=== PATIENT | male | born 1940 | race Caucasian/White ===

== ENCOUNTER 2022-08-16 02:19 | Inpatient (IN) | payer MEDICARE ==
[2022-08-16 03:07] LABS: ESTIMATED GFR 38 mL/min (>60); TROPONIN I HIGH SENSITIVITY 25.2 pg/mL (<=60.3)
[2022-08-16 03:18] LABS: CORONAVIRUS COVID-19 NAA NEGATIVE (NEGATIVE)
[2022-08-16] MEDS: cefTRIAXone 2 GM in Sodium Chloride 0.9% 50 ML IV SCH (03:43)
[2022-08-16] MEDS ORDERED: Bisacodyl 5 MG Tab PO PRN (04:47)
[2022-08-16] MEDS ORDERED: Nitroglycerin 0.4 MG Tab.SL SL PRN (04:47)
[2022-08-16] MEDS ORDERED: Acetaminophen 325 MG Tab PO PRN (04:47)
[2022-08-16] MEDS ORDERED: Melatonin 3 MG Tab PO PRN (04:47)
[2022-08-16] MEDS ORDERED: Morphine 2 MG/ML SYRINGE IVPUSH PRN (04:47)
[2022-08-16] MEDS ORDERED: oxyCODONE 5 MG Tab PO PRN (04:47)
[2022-08-16] MEDS ORDERED: Docusate Sodium 100 MG Cap PO PRN (04:47)
[2022-08-16] MEDS ORDERED: Albuterol 0.083% 2.5 MG/3 ML Neb Soln NEB PRN (04:47)
[2022-08-16] MEDS ORDERED: Ondansetron 4 MG Tab.DIS PO PRN (04:47)
[2022-08-16] MEDS ORDERED: Oseltamivir 75 MG Cap PO SCH (04:47)
[2022-08-16] MEDS ORDERED: Oseltamivir 75 MG Cap PO ONE (05:00)
[2022-08-16] MEDS: Azithromycin 500 MG in Sodium Chloride 0.9% 250 ML IV SCH (05:34)
[2022-08-16] MEDS: Sodium Chloride 0.9% 1,000 ML IV SCH ×2 (05:42→15:12)
[2022-08-16] MEDS ORDERED: Albuterol/Ipratropium 3.0-0.5 MG/3 ML Neb Soln NEB SCH (06:00)
[2022-08-16] MEDS ORDERED: Sodium Chloride 0.9% 1,000 ML IV ONE (06:15)
[2022-08-16] MEDS: Insulin Lispro 100 Unit/ML 3 ML KwikPen SUBCUT SCH ×4 (07:56→21:53)
[2022-08-16] MEDS: Losartan 50 MG Tab PO SCH (08:17)
[2022-08-16] MEDS: Carvedilol 3.125 MG Tab PO SCH ×2 (08:17→16:52)
[2022-08-16] MEDS: Furosemide 40 MG Tab PO SCH (08:17)
[2022-08-16] MEDS ORDERED: Pantoprazole 40 MG Vial IV SCH (09:00)
[2022-08-16] MEDS ORDERED: Sodium Chloride 0.9% 500 ML IV ONE (09:00)
[2022-08-16] MEDS: Rosuvastatin 10 MG Tab PO SCH (10:09)
[2022-08-16] MEDS: Allopurinol 100 MG Tab PO SCH (10:09)
[2022-08-16] MEDS: Ferrous Sulfate 325 MG Tab PO SCH (10:09)
[2022-08-16] MEDS: Pantoprazole 40 MG Vial IV SCH ×2 (10:10→21:58)
[2022-08-16] MEDS: Oseltamivir 30 MG Cap PO SCH ×2 (10:10→21:54)
[2022-08-16] MEDS: Albuterol/Ipratropium 3.0-0.5 MG/3 ML Neb Soln NEB SCH ×3 (10:21→21:55)
[2022-08-16] MEDS: GLIPIZIDE 2.5 MG PO SCH (15:18)
[2022-08-17] MEDS: Sodium Chloride 0.9% 1,000 ML IV SCH (01:01)
[2022-08-17] MEDS: cefTRIAXone 2 GM in Sodium Chloride 0.9% 50 ML IV SCH (03:52)
[2022-08-17] MEDS: Azithromycin 500 MG in Sodium Chloride 0.9% 250 ML IV SCH (05:12)
[2022-08-17 06:17] LABS: ESTIMATED GFR 51 mL/min (>60)
[2022-08-17] MEDS: Albuterol/Ipratropium 3.0-0.5 MG/3 ML Neb Soln NEB SCH ×2 (07:10→10:34)
[2022-08-17] MEDS: Insulin Lispro 100 Unit/ML 3 ML KwikPen SUBCUT SCH ×2 (07:32→12:22)
[2022-08-17] MEDS: Oseltamivir 30 MG Cap PO SCH (08:59)
[2022-08-17] MEDS: Ferrous Sulfate 325 MG Tab PO SCH (08:59)
[2022-08-17] MEDS: Rosuvastatin 10 MG Tab PO SCH (08:59)
[2022-08-17] MEDS: Furosemide 40 MG Tab PO SCH (09:00)
[2022-08-17] MEDS: Losartan 50 MG Tab PO SCH (09:00)
[2022-08-17] MEDS: Carvedilol 3.125 MG Tab PO SCH (09:01)
[2022-08-17] MEDS: Allopurinol 100 MG Tab PO SCH (09:01)
[2022-08-17] MEDS: GLIPIZIDE 2.5 MG PO SCH (09:02)
[2022-08-17] MEDS: Pantoprazole 40 MG Vial IV SCH (09:05)
== END 2022-08-17 13:45 | disposition home or self-care (01) | DRG 194 ==
LOC: JP.ED 02:19 → JP.MS 04:13
PROVIDERS: ADMIT Hospitalist; ATTEND Internal Medicine
DX: J10.00 Influenza due to other identified influenza virus with unspecified type of pneumonia (principal); I13.0 Hypertensive heart and chronic kidney disease with heart failure and stage 1 through stage 4 chronic kidney disease, or unspecified chronic kidney disease; I50.9 Heart failure, unspecified; N18.31 Chronic kidney disease, stage 3a; E11.22 Type 2 diabetes mellitus with diabetic chronic kidney disease; Z20.822 Contact with and (suspected) exposure to COVID-19; Z28.310 Unvaccinated for COVID-19; Z95.5 Presence of coronary angioplasty implant and graft; I25.10 Atherosclerotic heart disease of native coronary artery without angina pectoris; E78.5 Hyperlipidemia, unspecified; E78.00 Pure hypercholesterolemia, unspecified; Z79.84 Long term (current) use of oral hypoglycemic drugs; Z96.649 Presence of unspecified artificial hip joint; Z96.659 Presence of unspecified artificial knee joint; M1A.9XX0 Chronic gout, unspecified, without tophus (tophi); I48.91 Unspecified atrial fibrillation; Z79.01 Long term (current) use of anticoagulants; Z88.1 Allergy status to other antibiotic agents; Z79.82 Long term (current) use of aspirin; Z79.899 Other long term (current) drug therapy; I25.2 Old myocardial infarction; Z95.0 Presence of cardiac pacemaker
CPT/HCPCS: 0241U; 36415; 71045; 80053; 82947; 83605; 83880; 84145; 84484; 85025; 85027; 85610; 87040; 94640; 96365; 99285-25; A9270-GY; C9113; J0456; J0696; J1815; J7030; J7040; J7050; J7620